=== PATIENT | female | born 1970 | race Caucasian/White ===

== ENCOUNTER 2024-04-28 13:19 | Outpatient (OUT) | payer OTHER, SELFPAY ==
--- NOTE | 2024-04-28 13:25 | XR_ITS ---
The [address] [address] Patient Name: PITER GONZALEZ MRN: [id number] date: 1970 Sex: F Assigned Patient Location: [facility] Current Patient Location: Accession/Order Number: [id number] Exam Date: 04/28/2024 13:30 Report Date: 04/29/2024 09:14 At the request of: SARA PAULSON Procedure: XR foot RT min 3V PROCEDURE: XR foot RT min 3V HISTORY: Right Foot Pain COMPARISON: None. FINDINGS: BONES:Minimal degenerative changes of the midfoot. Minimal flattening of the plantar arch. Large calcaneal plantar spur. SOFT TISSUES:No visible soft tissue swelling. EFFUSION:None visible. OTHER: Negative. XR/XR foot RT min 3V IMPRESSION: 1. No appreciable acute abnormality. 2. Large calcaneal plantar spur. Otherwise minimal degenerative changes. Electronically authenticated by: ISAAC LAMB Date: 04/29/2024 09:14
== END 2024-04-28 13:20 | disposition home or self-care (01) ==
LOC: RAD 13:19
PROVIDERS: PCP Family Medicine; Visit Provider Podiatrist Foot & Ankle Surgery
DX: M79.671 Pain in right foot (principal); M77.31 Calcaneal spur, right foot
CPT/HCPCS: 73630

== ENCOUNTER 2025-01-07 15:51 | Outpatient (RCR) | payer OTHER, SELFPAY | END 2025-01-21 09:05 | disposition home or self-care (01) | LOC: PT 15:51 | PROVIDERS: PCP Family Medicine; Visit Provider Psychiatry & Neurology Neurology | DX: H81.10 Benign paroxysmal vertigo, unspecified ear (principal); H81.20 Vestibular neuronitis, unspecified ear | CPT/HCPCS: 95992; 97140; 97161 ==